=== PATIENT | male | born 1960 | race Caucasian/White ===

== ENCOUNTER 2016-09-09 18:41 | Emergency (ER) | payer OTHER ==
[~2016-09-09] VITALS: Ht 175.3 cm; Wt 91.0 kg
[2016-09-09 18:43] VITALS: BP 153/85; PULSE 100; RESP 20; TEMP 97.9; O2SAT 95
[2016-09-09] MEDS ORDERED: NEUR300C PO (19:52)
[2016-09-09] MEDS ORDERED: DICL75TA PO (19:52)
--- NOTE | 2016-09-09 19:57 | PD ---
HPI Chief Complaint: Pain: Acute or Chronic Time Seen by Provider: 19:52 Travel History International Travel<30 days: No Contact w/Intl Traveler<30days: No Traveled to known affect area: No History of Present Illness HPI 55-year-old white male presents to emergency Department with complaints of right arm pain. He states that he feels that he may be injured himself lifting firewood when he went up [place] 1-2 weeks ago. He has had pain in his upper outer right arm with radiation down the arm and up into his right neck. He does not recall any traumatic event. He states the pain is reproducible to palpation the upper arm but states that he has pain which radiates down the arm and has some tingling into his fingers. Patient does admit to having some neck pain in the past. He denies any recent illness. No fever or chills. No chest pain or shortness of breath. No focal weakness. PFSH Past Medical History Medical History: Denies Significant Hx Respiratory: Yes (COPD) Tetanus Vaccination: < 5 Years Past Surgical History Surgical History: No Previous Surgery Social History Alcohol Use: No Tobacco Use: Yes (1ppd) Substance Use: No Allergies-Medications (Allergen,Severity, Reaction): Coded Allergies: No Known Allergies (Unverified , 09/09/16) Reported Meds & Prescriptions Reported Meds & Active Scripts Active Neurontin (Gabapentin) 300 Mg Cap 300 Mg PO TID Diclofenac Sodium DR (Diclofenac Sodium) 75 Mg Tabdr 75 Mg PO BID Review of Systems Except as stated in HPI: all other systems reviewed are Neg Physical Exam Narrative GENERAL: Well-developed, well-nourished in no apparent distress. Nontoxic appearing. HEAD: Normocephalic, atraumatic. EYES: Pupils equal round and reactive. Extraocular motions intact. No scleral icterus. No injection or drainage. ENT: Nose clear. Throat without erythema, tonsillar hypertrophy or exudate. Uvula midline. Airway patent. NECK: Trachea midline. Supple, mild right paracervical muscle tenderness. Moves head freely. No central bony tenderness or spasm. CARDIOVASCULAR: Regular rate and rhythm without murmurs, gallops, or rubs. RESPIRATORY: Clear to auscultation. Breath sounds equal bilaterally. No wheezes , rales, or rhonchi. GASTROINTESTINAL: Abdomen soft, non-tender, nondistended. No hepato-splenomegaly , or palpable masses. No guarding. EXTREMITIES: No clubbing, cyanosis, or edema. No joint tenderness. Examination the right upper extremity reveals full range of motion. Negative drop test. There is no pain on palpation of the shoulder joint, elbow, wrist or hand. He has intact median/ulnar/radial nerves. He has good flow trader. He has good distal pulses. He does complain of some tenderness to the upper proximal outer arm. There is no erythema, warmth or swelling BACK: Nontender without deformity. No flank tenderness. NEUROLOGICAL: Awake, alert and oriented x 3 .Cranial nerves grossly intact. Motor and sensory grossly within normal limits. Normal speech. Data Data Last Documented VS Vital Signs Date Time Temp Pulse Resp B/P Pulse Ox O2 Delivery O2 Flow Rate FiO2 09/09/16 18:43 97.9 100 20 153/85 95 Room Air MDM Medical Decision Making Medical Screen Exam Complete: Yes Emergency Medical Condition: Yes Medical Record Reviewed: Yes Differential Diagnosis Differential diagnoses: Sprain, strain, HNP, cervical radiculopathy, rotator cuff injury Narrative Course The patient's history and exam is consistent more with a cervical radiculopathy than a myofascial injury. The patient will be given diclofenac and Neurontin. Diagnosis Primary Impression: Cervical radiculopathy Patient Instructions: General Instructions Additional Instructions: Rest. Ice for the next 3 days followed by heat . Neurontin and Voltaren. Follow-up with a primary care doctor in one week. Consider physical therapy. Return to the ER for emergencies. Med/Other Pt SpecificInfo: Prescription(s) given Scripts Gabapentin (Neurontin)300 Mg [id number] Mg PO TID #30 CAP Prov:Garth Almazan MD 09/09/[address] 75 Mg Tabdr75 Mg PO BID #20 TAB Prov:Garth Almazan MD 09/09/16 Disposition: 01 DISCHARGE HOME Condition: Stable Terry Cameron Sep 09, 2016 19:57
== END 2016-09-09 20:15 | disposition home or self-care (01) ==
LOC: NEPB 18:41
DX: M54.12 Radiculopathy, cervical region (principal); F17.210 Nicotine dependence, cigarettes, uncomplicated
CPT/HCPCS: 99283